=== PATIENT | female | born 1960 | race Caucasian/White ===

== ENCOUNTER 2022-08-22 11:05 | Emergency (ER) | payer SELFPAY ==
[2022-08-22] MEDS ORDERED: Dexamethasone 4 MG Tab PO ONE (12:12)
[2022-08-22] MEDS ORDERED: GI Cocktail Oral Solution 30 ML PO ONE (12:13)
== END 2022-08-22 12:38 | disposition home or self-care (01) ==
LOC: DL.ED 11:05
DX: U07.1 COVID-19 (principal); J02.9 Acute pharyngitis, unspecified
CPT/HCPCS: 87081; 87430; 87635; 87804; 99284; A9270; J8540; 99283; U0002